=== PATIENT | female | born 1995 | race Caucasian/White ===

== ENCOUNTER 2017-08-23 17:44 | Outpatient (CLI) | payer BC ==
[~2017-08-23] VITALS: Ht 167.6 cm; Wt 79.5 kg
[~2017-08-23 17:44] MED LIST: MOTRIN 600600 MG/TAB PO; PERCOCET 325 MG1 TA2 PO; PRENATAL1 TA1; ZOFRAN 4MG T4 MG/TAB PO
[2017-08-23] MEDS ORDERED: PROZAC 10MG10 MG (18:25)
[2017-08-23] MEDS ORDERED: UNISOM25 MG PO (18:26)
[2017-08-23] MEDS ORDERED: PRENATAL (18:26)
[2017-08-23] MEDS ORDERED: SLOW FE142 MG PO (18:26)
[2017-08-23] MEDS ORDERED: VITAMIN B-625 MG (18:27)
[2017-08-23 18:30] VITALS: BP 123/65; PULSE 99; TEMP 97.8
== END 2017-08-23 19:35 | disposition home or self-care (01) ==
LOC: LDRO 17:44
DX: O99.613 Diseases of the digestive system complicating pregnancy, third trimester (principal); R10.30 Lower abdominal pain, unspecified; Z3A.34 34 weeks gestation of pregnancy

== ENCOUNTER 2017-08-29 14:38 | Outpatient (CLI) | payer BC ==
[~2017-08-29] VITALS: Ht 167.6 cm; Wt 74.1 kg
[~2017-08-29 14:38] MED LIST changes: +PRENATAL; +PROZAC 10MG10 MG; +SLOW FE142 MG PO; +UNISOM25 MG PO; +VITAMIN B-625 MG
[2017-08-29 14:43] VITALS: BP 135/78; PULSE 90; TEMP 98.2
[2017-08-29 15:00] VITALS: BP 135/78; PULSE 90; TEMP 98.2
[2017-08-29 15:30] VITALS: BP 111/61; PULSE 110
[2017-08-29 15:45] VITALS: BP 117/60; PULSE 114
== END 2017-08-29 15:45 | disposition short-term general hospital (02) ==
LOC: LDRO 14:38
DX: O42.913 Preterm premature rupture of membranes, unspecified as to length of time between rupture and onset of labor, third trimester (principal); Z3A.35 35 weeks gestation of pregnancy; Z87.891 Personal history of nicotine dependence
CPT/HCPCS: J0290; J0702; J3475; J7120